=== PATIENT | female | born 1930 | race Caucasian/White ===

== ENCOUNTER 2016-08-18 18:11 | Inpatient (IN) | payer MEDICARE ==
--- NOTE | ~2016-08-18 | DS ---
Discharge Summary [facility] [address] [place]. [address] NAME: NICK PETERS : 32 STATUS : DIS IN PAT#: [id number] AGE: 86 ADM/REG DATE : 08/18/16 MR#: [id number] REPORT SERV DATE: 08/23/16 DICTATED BY: SALVATORE DOWNS DATE: 08/20/16 REPORT STATUS : Draft TRANSCRIBED BY: MODL DATE: 08/20/16 ADMISSION DATE: 08/18/2016 DISCHARGE DATE: 08/20/2016 CONSULTANTS: Shawn Reed PA-C, Pulmonary physician's senior court office assistant. DISCHARGE DIAGNOSES: 1. Acute diastolic congestive heart failure with bilateral pleural effusions. 2. Acute hypoxic respiratory failure. 3. Moderate aortic stenosis with bicuspid aortic valve and left ventricular ejection fraction of 55% to 60%. 4. Sick sinus syndrome with previous second-degree AV block, requiring pacemaker at [facility] 2015. 5. History of post pacemaker pericardial effusion, requiring pericardial drain. 6. Previous right occipital stroke in 2011 and previous transient ischemic attacks. 7. Hypertension. 8. Hypothyroidism. 9. Asymptomatic bacteria. 10.Type 2 myocardial infarction. 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 12.Recurrent syncope in the past. 13.History of uterine cancer. HISTORY: This patient has had a lot of health changes over the last year. She was hospitalized at [facility] in January 2016 with second-degree AV block, had a pacemaker placed, had a pericardial effusion requiring a pericardiocentesis and drain. The patient was back in [facility] with weakness and syncope 08/01/2016 and was discharged to go to a skilled rehab facility [facility]. On arrival there, the patient was tachypneic and short of breath, low O2, was transferred back to the ER at [facility]. [facility] did a CT chest on 08/18/2016 showing improved pericardial effusion compared to the previous study, persistent bilateral pleural effusions left greater than right, some atelectasis, and adjacent edema. They felt she might have urinary tract infection and released her back to the skilled facility. The facility wanted her to have further evaluation so sent her to our emergency room. In our emergency room, arterial blood gas done on 08/18/2016 showed pH 7.46, pCO2 of 43, pO2 of 81, bicarbonate 29.6, this was on 36% oxygen. Reportedly, she had been hypoxic when the paramedics picked her up. She was referred to our team for inpatient care. Imaging included a portable chest which did indeed show bilateral pleural effusions left greater than right, bibasilar atelectasis, and cardiomegaly. Cardiac enzymes showed minimal elevation 0.16, then troponin 0.09 and troponin 0.08. The patient had no chest pain with this. EKG on admission showed sinus rhythm and septal Q-waves, otherwise unremarkable findings. Echocardiogram on 08/19/2016, left atrium 3.4 cm, left ventricular ejection fraction of 60% to 65%. Diastolic dysfunction was noted. Mild mitral and tricuspid regurgitation, moderate aortic stenosis was noted. This was some progression of aortic valve stenosis since 05/06/2014. Discharge Summary [address] [place]. [address] NAME: NICK PETERS : 32 STATUS : DIS IN PAT#: [id number] AGE: 86 ADM/REG DATE : 08/18/16 MR#: [id number] REPORT SERV DATE: 08/23/16 DICTATED BY: SALVATORE DOWNS DATE: 08/20/16 REPORT STATUS : Draft TRANSCRIBED BY: GEOVANNA DATE: 08/20/16 The patient has a long list of allergies to most congestive heart failure medications. She had no listed allergy to Bumex. She was given Bumex several doses intravenously and tolerated it well. I met with the patient so did my admitting partner and talked to her about the potential option of thoracentesis. We had Sid Reed talk to her about it. The patient made it clear to Derek and to me that she did not want to have intervention. I told her if she had thoracentesis, they would probably reduce her pleural effusions much quicker than just diuresis. We did discuss the possibility of complications, and she stated she did not want to take that chance after her recent complications after her pacemaker procedure. She made it clear, she was comfortable since she had been put on the oxygen and the Bumex, and all she wanted to have us do is keep her comfortable, and send her back to the same skilled facility where she had just gone to be with her who is there on hospice. I had a discussion with her about her code status. She again made it clear, she want to be DNR and DNI. She wanted no interventions to sustain life other than potentially antibiotics if they were needed and oxygen and simple medications. She again indicates she just wanted to be comfortable. I called and spoke with Dr. Ernesto Muniz, at the rehab as he is going to be a physician following her there, made him aware of the patient's wishes, and the fact that she still has moderate pleural effusions, but her symptoms are controlled at this time. I told him that we had talked with the patient about more aggressive therapy. She did not want to consider anything more aggressive than what we are already doing. I did fill out the POLST form for her DNR. We are adding Bumex. They can follow up her potassium and magnesium and creatinine and bicarbonate there. At the time of discharge, sodium is 142, potassium 3.8, chloride 100, CO2 is 33, BUN 10, creatinine 0.75, magnesium is 1.9, white count 6.3, hemoglobin 9.6, and platelets 284,000. DISCHARGE MEDICATIONS: Aspirin 81 mg daily, gabapentin 300 mg at bedtime, Mevacor 40 mg at bedtime, Protonix 40 mg daily, [place] Thyroid 15 mg daily (TSH was slightly elevated at 3.97), Tylenol 650 q.4 hours p.r.n. pain, Xanax 0.5 mg b.i.d. p.r.n. anxiety which is a chronic medication for this patient prescription written for seven of these, Imodium p.r.n. diarrhea, nitroglycerin 0.4 mg p.r.n. chest pain, Ultram 25 mg q.i.d. p.r.n. pain #10 prescribed, Bumex 0.5 mg p.o. every morning as well as recommendations for a BMP and magnesium at least once a week thereafter. I asked our team here to send a copy of the POLST form along with her to the rehab. I spent 33 minutes with the patient today. IHSAN/GEOVANNA Salvatore Downs M.D. Discharge Summary [facility] [address] [place]. [address] NAME: NICK PETERS : 32 STATUS : DIS IN PAT#: [id number] AGE: 86 ADM/REG DATE : 08/18/16 MR#: [id number] REPORT SERV DATE: 08/23/16 DICTATED BY: SALVATORE DOWNS DATE: 08/20/16 REPORT STATUS : Draft TRANSCRIBED BY: MODL DATE: 08/20/16 / [id number] CC: Amadeo Mead M.D. James Scott Manton, M.D. William L. Horton, M.D. Charles CAMPBELL, MD [facility] [place]
--- NOTE | ~2016-08-18 | HP ---
History And Physical [facility] [address] [facility] [address] [place]. [address] NAME: NICK ZEPEDA : 34 STATUS : ADM IN [facility]#: [id number] AGE: 86 ADM/REG DATE : 08/18/16 MR#: [id number] REPORT SERV DATE: 08/19/16 DICTATED BY: FRANCISCO CHRISTIAN DATE: 08/18/16 REPORT STATUS : Draft TRANSCRIBED BY: MODLilia DATE: 08/18/16 DATE OF ADMISSION: 08/18/2016 POINT OF ENTRY: [facility] Emergency Department. PRIMARY PIPE LINE GAUGER: Dr. Warner of [facility]. CHIEF COMPLAINT: Hypoxemia. HISTORY OF PRESENT ILLNESS: Ms. Zepeda is an 86-year-old female with a history of hypertension, hyperlipidemia, sick sinus syndrome, status post pacemaker insertion as well as hypothyroidism, who was referred to our emergency department by her usp facility for hypoxemia. The patient is a long-term resident of a usp facility in [place], [place]. She reportedly has not required oxygen in the past. According to facility, they noted that she was severely hypoxemic today with saturations reportedly as low as the mid 70s on room air. Given her hypoxemia, they initially sent her to [facility] for evaluation, where evaluation at [place] was notable for a chest x-ray with bilateral pleural effusions; however, according to Radiology, there was no significant change compared to prior chest x-ray from 08/12/2016. CT scan of the chest with IV contrast again revealed left greater than right pleural effusions as well as compressive atelectasis without any document evidence of pneumonia or PE. Additional workup was noted for urinary tract infection. There was no documentation as to the degree of hypoxemia noted in [place]. She was subsequently discharged back to her facility with diagnosis of urinary tract infection. The facility was still very concerned about her hypoxemia and they sent her to [facility] for evaluation. The patient denies any shortness of breath, chest pain, does report a dry cough, but denies any sputum production or wheezing. Again, she denies any known prior oxygen requirement in the past. Of note, the patient is very poor historian secondary to the patient's severe hearing impairment and lack of family members at bedside. Initial evaluation in the emergency department notable for an ABG with a pO2 of 80 on 4 L by nasal cannula. EKG was unremarkable. BNP was not checked. Chest x-ray again documented left greater than right pleural effusions. Given her hypoxemia and facilities reluctance to accept her back given their concerns of her hypoxia, she was subsequently admitted to the Hospitalist Service for further evaluation and management. REVIEW OF SYSTEMS: Comprehensive review of systems otherwise negative, unless listed in history of present illness. PREVIOUS MEDICAL HISTORY: 1. Paroxysmal atrial fibrillation, not on anticoagulation. 2. Hypothyroidism. History And Physical [address] [address] NAME: NICK ZEPEDA : 32 STATUS : ADM IN [facility]#: [id number] AGE: 86 ADM/REG DATE : 08/18/16 MR#: [id number] REPORT SERV DATE: 08/19/16 DICTATED BY: FRANCISCO CHRISTIAN DATE: 08/18/16 REPORT STATUS : Draft TRANSCRIBED BY: GEOVANNA DATE: 08/18/16 3. Hyperlipidemia. 4. Hypertension. 5. Pulmonary hypertension. 6. Sick sinus syndrome status post pacemaker insertion. 7. Gastroesophageal reflux disease. 8. History of TIA and stroke in the past. 9. Anxiety. 10.History of endometrial cancer status post hysterectomy. 11.History of pericardial effusion requiring pericardiocentesis. 12.History of bicuspid aortic valve. 13.Peptic ulcer disease. SURGICAL HISTORY: 1. Pacemaker insertion. 2. Right total hip. 3. Pericardiocentesis. 4. Abdominal hysterectomy. 5. Cholecystectomy. 6. Anterior cervical diskectomy and fusion. ALLERGIES: MULTIPLE INCLUDING METHYLDOPA, PROPRANOLOL, MANNITOL, KETOROLAC, BENAZEPRIL, PENICILLIN, CAPTOPRIL, LISINOPRIL, NADOLOL, LEVOTHYROXINE, ALDACTONE, DIURIL, HYDROCHLOROTHIAZIDE, LASIX, KEFLEX, METOPROLOL, CLONIDINE, ENALAPRIL, VALSARTAN, AND IRBESARTAN. HOME MEDICATIONS: 1. Xanax 0.5 mg b.i.d. p.r.n. 2. Aspirin 81 mg daily. 3. Neurontin 300 mg q.h.s. 4. Imodium 2 mg daily p.r.n. 5. Lovastatin 40 mg q.h.s. 6. Protonix 40 mg daily. 7. [place] Thyroid 15 mg daily. 8. Tramadol 50 mg q.i.d. p.r.n. SOCIAL HISTORY: Denies any tobacco, alcohol, or illicits. She is . She states her is currently in hospice care. She is in a usp facility in [place], [place]. FAMILY MEDICAL HISTORY: Unable to be obtained as the patient is a poor historian. LABORATORIES AND IMAGIN. White count 6.0, hemoglobin 9.7, hematocrit is 30.6, and platelet count is 297. INR 1.2. 2. Sodium is 141, potassium 3.7, chloride 102, carbon dioxide 31, BUN 12, creatinine 0.67, glucose is 87, calcium is 7.9, albumin is 2.4, bilirubin is 0.4, ALT is 22, AST 15, alkaline phosphatase is 97. History And Physical [address] [address] NAME: NICK ZEPEDA : 34 STATUS : ADM IN [facility]#: [id number] AGE: 86 ADM/REG DATE : 08/18/16 MR#: [id number] REPORT SERV DATE: 08/19/16 DICTATED BY: FRANCISCO CHRISTIAN DATE: 08/18/16 REPORT STATUS : Draft TRANSCRIBED BY: GEOVANNA DATE: 08/18/16 3. Lactic acid 0.6. 4. Urinalysis: Specific gravity is 1.050, trace ketones, but no evidence of any infection. 5. Chest x-ray per my review shows left greater than right pleural effusions, but no evidence of any consolidation or infiltrate. 6. ABG; pH is 7.46, pCO2 is 43, pO2 is 80, bicarbonate is 29, saturating 96% on 4 L nasal cannula. 7. EKG per my review shows normal sinus rhythm. No evidence of any acute ischemia or infarction. 8. Per my review of the [facility] ER records from earlier today, she had a chest x-ray that again showed bilateral pleural effusions, which appear to be unchanged compared to prior chest x-ray from 08/12/[address] a [address] scan of the chest that shows left greater than right pleural effusions with improving pericardial effusion as well as bilateral lower lobe collapse and atelectasis as well as some interstitial edema. There is also an H and P from a previous recent admission from [facility] that documents an echocardiogram from June 2016 with preserved ejection fraction of 65%, but severe mitral regurgitation as well as mild aortic stenosis and mild pulmonary hypertension. PHYSICAL EXAMINATION: VITAL SIGNS: Temperature is 98.7 degrees Fahrenheit, pulse is 90, respirations 19, saturating 95% on 2 L by nasal cannula, blood pressure 136/80. On recheck, blood pressure is now 129/56, saturating 96% on 3 L of nasal cannula, heart rate 71. GENERAL: The patient is awake, alert, in no acute distress, resting comfortably. She is a chronically ill-appearing elderly female. No family is at bedside. The patient is extremely hard of hearing. HEENT: Atraumatic and normocephalic. Moist mucous membranes. Pupils are equal, round, reactive to light and accommodation. Extraocular movements intact. No scleral icterus. NECK: No jugular venous distention. No carotid bruits, but does have a transmitted cardiac murmur into the bilateral carotids. CARDIAC: Regular rate and rhythm. She has a 4/6 late-peaking systolic murmur with radiation to the carotids with almost complete duration of S2. ABDOMEN: Soft, nontender, nondistended. Good bowel sounds. No rebound, guarding, or rigidity. LUNGS: She is on oxygen, but in no respiratory distress. Does have decreased breath sounds, left greater than right as well as some mild inspiratory rales and wheezes in the bases. EXTREMITIES: Warm and well-perfused. There was some trace lower extremity edema. SKIN: Warm and dry. PSYCH: Affect appropriate. NEURO: Alert and oriented x3. Cranial nerves II through XII grossly intact. Speech is normal. Gait is not assessed. ASSESSMENT: Ms. Zepeda is an 86-year-old female, who is referred by her nursing facility for persistent hypoxemia and found to have evidence of bilateral pleural effusions, likely causing her hypoxemia. PROBLEM LIST: 1. Acute hypoxic respiratory failure. History And Physical [address] [address] NAME: NICK ZEPEDA : 34 STATUS : ADM IN [facility]#: [id number] AGE: 86 ADM/REG DATE : 08/18/16 MR#: [id number] REPORT SERV DATE: 08/19/16 DICTATED BY: FRANCISCO CHRISTIAN DATE: 08/18/16 REPORT STATUS : Draft TRANSCRIBED BY: MODL DATE: 08/18/16 2. Bilateral pleural effusions. 3. History of pericardial effusion. 4. Urinary tract infection. 5. Aortic stenosis murmur. PLAN: 1. Acute hypoxic respiratory failure. I suspect that the patient's acute hypoxic respiratory failure is likely due to her bilateral pleural effusions, which were causing compressive atelectasis and lower lobe collapse as well as maybe some intravascular volume overload. We will check BNP level. We will attempt some very gentle diuresis with Bumex as the patient is allergic to various diuretic medications. We will consult Pulmonology for assistance with likely therapeutic and diagnostic thoracentesis to see if this improves her hypoxic respiratory failure. Also checking echocardiogram in the morning. 2. Urinary tract infection. UA here is without evidence of urinary tract infection, however, her [facility] records from early in the morning do document urinary tract infection. We will place the patient on IV Rocephin. 3. History of pericardial effusion. We will try to obtain outside records from [facility] as well as checking an echocardiogram. 4. Aortic stenosis murmur. The patient does have mention of echo from June of 2016 with preserved ejection fraction with some valvular disease. However, given her new onset hypoxemia as well as profound murmur and history of pericardial effusion, we will recheck an echocardiogram here to observe for any acute change in her cardiac and valvular function. 5. DVT prophylaxis. Lovenox subcutaneously. CODE STATUS: The patient wished to be full code. JCB/CARMENL Francisco Christian MD / [id number] CC: Dm Downs M.D. Elroy Blank M.D.
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
[~2016-08-18 18:11] MED LIST: ACET500CAP PO; ARMOUR THYRO15 MG PO; ASAB PO; ASAEC PO; ASPERCREME TOP; BYSTOLIC10 MG PO; BYSTOLIC5 MG PO; COZ50 PO; ECOTRIN81 MG PO; MEVACOR PO; MEVACOR40 MG PO; NEUR300 PO; NORV10 PO; NORV5 PO; NORVASC 5 MG TAB5 MG PO; OS500+D PO; PLAVIX PO; PROTONIX PO; SYSTANE OP; TYLENOL ARTH650 MG PO; TYLENOL PO; ULTRAM50 PO; X25 PO; X5 PO; XANAX1 MG PO
[2016-08-18 19:33] LABS: BE (BASE EXCESS) 5.2 MEQ/L (0 +/- 2.5); CARBOXYHEMOGLOBIN 0.9 % (0-3); DEVICE NC; HCO3 (ACTUAL BICARBONATE) 29.6 MEQ/L (23-27); HEMOBLOGIN CONTENT 9.6 G/DL (12-16); INSTRUMENT SERIAL # 8087; METHEMOGLOBIN 0.3 % (0-3); O2 CONTENT 12.9 VOL% (18-24); OPERATOR ID 17589; PCO2 (CO2 TENSION) 43 MMHG (35-45); PO2 (O2 TENSION) 81 MMHG (79-93); SAMPLE Arterial; pH 7.46 (7.37-7.43)
[2016-08-18] MEDS ORDERED: ASAB PO (19:37)
[2016-08-18] MEDS ORDERED: X5 PO (19:37)
[2016-08-18] MEDS ORDERED: IMOD PO (19:38)
[2016-08-18 20:16] LABS: ASCORBIC ACID (UR NOT ORDER) NEG (NEG); BILIRUBIN, URINE NEGATIVE (NEG); ER URINALYSIS TAT 0 Hrs 11 Mins; KETONE, URINE TRACE MG/DL (NEG); LEUKOCYTE ESTERASE(NOT OR NEG (NEG); NITRITE (URINE) NEG (NEG); WBC (NOT ORDERED) (RFLEX) 3 (0-5)
[2016-08-18 20:16] LABS: BASOPHILS 0.2 %; BASOPHILS ABSOLUTE 0.01 10/3/uL (0.0-0.16); EOSINOPHILS 3.2 %; EOSINOPHILS ABSOLUTE 0.19 10/3/uL (0.0-0.53); ER CBC TAT 0 Hrs 22 Mins; HEMATOCRIT 30.6 % (36.0-48.0); HEMOGLOBIN 9.7 g/dL (12.0-16.0); IMMATURE GRANULOCYTES 0.3 %; IMMATURE GRANULOCYTES ABSOLUTE 0.02 10/3/uL (0.0-0.11); LYMPHOCYTES 17.6 %; LYMPHOCYTES ABSOLUTE 1.05 10/3/uL (0.67-4.30); MANUAL DIFF NO %; MEAN CORPUS HGB CONC 31.7 g/dL (32.0-36.0); MEAN CORPUSCULAR HEMOGLOB 28.2 pg (26.0-34.0); MEAN PLATELET VOLUME 9.8 fL (9.2-13.0); MONOCYTES 7.9 %; MONOCYTES ABSOLUTE 0.47 10/3/uL (0.21-1.20); NEUTROPHILS 70.8 %; NEUTROPHILS ABSOLUTE 4.21 10/3/uL (2.02-8.40); PLATELET COUNT 297 10/3/uL (150-400); RBC DISTRIBUTION WIDTH 13.6 % (12.0-16.0); RED CELL COUNT 3.44 10/6/uL (4.0-5.6)
[2016-08-18 20:22] LABS: ALKALINE PHOSPHATASE 97 U/L (45-117); CALCIUM, SERUM 7.9 MG/DL (8.5-10.4); CHLORIDE, SERUM 102 MMOL/L (96-112); CO2 (CARBON DIOXIDE) 31 MMOL/L (24-34); CREATININE 0.67 MG/DL (0.55-1.02); GFR AFRICAN AMERICAN 94 ML/MIN (>=60); GFR NON AFRICAN AMERICAN 81 ML/MIN (>=60); GLUCOSE, SERUM 87 MG/DL (60-99); POTASSIUM, SERUM 3.7 MMOL/L (3.5-5.3); SGOT(AST) 15 U/L (5-40); SGPT(ALT) 22 U/L (5-65); SODIUM, SERUM 141 MMOL/L (135-148); TOTAL BILIRUBIN 0.4 MG/DL (0-1.2); TOTAL PROTEIN 5.8 G/DL (6.0-8.5)
[2016-08-18 20:23] LABS: A/G RATIO 0.7 (0.7-1.9); ALBUMIN 2.4 G/DL (3.5-5.0); BUN (BLOOD UREA NITROGEN) 12 MG/DL (6-23); GLOBULIN 3.4 G/DL (2.5-4.1)
[2016-08-18 20:27] LABS: INTERNATIONAL NORMAL RATI 1.2 UNITS (-)
[2016-08-18 20:30] LABS: PROTIME (NOT ORD) 14.9 SEC (12.0-14.5)
[2016-08-18 22:17] LABS: TROPONIN I 0.16 NG/ML (<0.05)
[2016-08-18 23:35] LABS: FREE T4 1.41 NG/DL (0.76-1.46)
[2016-08-19 04:01] LABS: BASOPHILS 0.5 %; BASOPHILS ABSOLUTE 0.03 10/3/uL (0.0-0.16); EOSINOPHILS 2.1 %; EOSINOPHILS ABSOLUTE 0.13 10/3/uL (0.0-0.53); HEMATOCRIT 29.4 % (36.0-48.0); HEMOGLOBIN 9.6 g/dL (12.0-16.0); IMMATURE GRANULOCYTES 1.4 %; IMMATURE GRANULOCYTES ABSOLUTE 0.09 10/3/uL (0.0-0.11); LYMPHOCYTES 14.1 %; LYMPHOCYTES ABSOLUTE 0.89 10/3/uL (0.67-4.30); MEAN CORPUS HGB CONC 32.7 g/dL (32.0-36.0); MEAN CORPUSCULAR VOLUME 88.8 fL (80-100); MEAN PLATELET VOLUME 10.9 fL (9.2-13.0); MONOCYTES 11.4 %; MONOCYTES ABSOLUTE 0.72 10/3/uL (0.21-1.20); NEUTROPHILS 70.5 %; NEUTROPHILS ABSOLUTE 4.47 10/3/uL (2.02-8.40); PLATELET COUNT 284 10/3/uL (150-400); RBC DISTRIBUTION WIDTH 13.6 % (12.0-16.0); RED CELL COUNT 3.31 10/6/uL (4.0-5.6); WHITE BLOOD CELLS 6.3 10/3/uL (4.5-10.5)
[2016-08-19 04:07] LABS: MANUAL DIFF NO %
[2016-08-19 04:39] LABS: BUN (BLOOD UREA NITROGEN) 10 MG/DL (6-23); CALCIUM, SERUM 7.8 MG/DL (8.5-10.4); CHLORIDE, SERUM 100 MMOL/L (96-112); CO2 (CARBON DIOXIDE) 27 MMOL/L (24-34); CREATININE 0.58 MG/DL (0.55-1.02); GFR AFRICAN AMERICAN 98 ML/MIN (>=60); GFR NON AFRICAN AMERICAN 85 ML/MIN (>=60); SODIUM, SERUM 139 MMOL/L (135-148)
[2016-08-19 04:41] LABS: GLUCOSE, SERUM 69 MG/DL (60-99); POTASSIUM, SERUM 4.3 MMOL/L (3.5-5.3); TROPONIN I 0.09 NG/ML (<0.05)
[2016-08-20 08:00] LABS: BUN (BLOOD UREA NITROGEN) 10 MG/DL (6-23); CHLORIDE, SERUM 100 MMOL/L (96-112); CREATININE 0.75 MG/DL (0.55-1.02); GFR AFRICAN AMERICAN 85 ML/MIN (>=60); GFR NON AFRICAN AMERICAN 73 ML/MIN (>=60); POTASSIUM, SERUM 3.8 MMOL/L (3.5-5.3); SODIUM, SERUM 142 MMOL/L (135-148)
[2016-08-20 08:01] LABS: CO2 (CARBON DIOXIDE) 33 MMOL/L (24-34); GLUCOSE, SERUM 93 MG/DL (60-99)
[2016-08-20] MEDS ORDERED: MOBIC7.5 PO (14:43)
[2016-08-20] MEDS ORDERED: DIL2TAB PO (14:43)
[2016-08-20] MEDS ORDERED: METHOC500B PO (14:44)
== END 2016-08-20 17:36 | DRG 280 ==
LOC: ER 18:11 → 1SO 21:52
PROVIDERS: Emergency Medicine; Hospitalist; Internal Medicine
DX: I11.0 Hypertensive heart disease with heart failure (principal); J96.01 Acute respiratory failure with hypoxia; I21.4 Non-ST elevation (NSTEMI) myocardial infarction; N39.0 Urinary tract infection, site not specified; I50.31 Acute diastolic (congestive) heart failure; I49.5 Sick sinus syndrome; I08.3 Combined rheumatic disorders of mitral, aortic and tricuspid valves; E03.9 Hypothyroidism, unspecified; Z66 Do not resuscitate; H91.90 Unspecified hearing loss, unspecified ear; E78.5 Hyperlipidemia, unspecified; Z87.891 Personal history of nicotine dependence; Z79.82 Long term (current) use of aspirin; Z79.1 Long term (current) use of non-steroidal anti-inflammatories (NSAID); Z79.899 Other long term (current) drug therapy; Z95.0 Presence of cardiac pacemaker; Z86.73 Personal history of transient ischemic attack (TIA), and cerebral infarction without residual deficits; Z85.42 Personal history of malignant neoplasm of other parts of uterus; Z87.11 Personal history of peptic ulcer disease; Z98.1 Arthrodesis status; Z88.8 Allergy status to other drugs, medicaments and biological substances; Z88.0 Allergy status to penicillin
CPT/HCPCS: 36600; 71010; 80048; 80053; 81001; 82805; 83605; 83735; 83880; 84439; 84443; 84484; 85025; 85610; 87040; 93005; 93306; 94640; 99285; A9270-GY